=== PATIENT | male | born 1980 | race Caucasian/White ===

== ENCOUNTER 2021-03-16 21:50 | Emergency (ER) | payer OTHER, SELFPAY ==
[2021-03-16 22:01] VITALS: BP 159/94; PULSE 73; RESP 18; TEMP 36.8; O2SAT 97; BMI 34.7
[2021-03-16 22:10] VITALS: BP 146/98; PULSE 72; RESP 16; TEMP 36.8; O2SAT 99
--- NOTE | 2021-03-16 22:16 | PC.NURSE ---
Right pupil 3mm reactive to light left pupil 7mm non reactive to light.
--- NOTE | 2021-03-16 22:17 | W.ED.EYEPROB ---
HPI - Eye Problem General: Chief complaint: Eye Problems Stated complaint: left eye dilated Time Seen by Provider: 03/16/21 22:05 History of Present Illness: HPI Narrative: Patient is a 40-year-old male comes to the ED with dilated left eye. He wears contacts and noticed the dilated left eye tonight when he was taking his contacts out. Reports having some blurry vision but denies any other symptoms such as eye pain. He said his blurry vision might be just a slight worse without his contacts in. He does report having just a very mild generalized headache. He states that today he was out working on some landscaping and pulling some weeds and brush and also was burning some trash as well. Denies any foreign body in eye or getting anything in eye to cause any irritation. He has never had anything like this happen before. Denies any drug use or visit to the eye doctor with an last 24 hours. Associated symptoms: Denies fever(s), headache(s), nausea, neck pain or vomiting Review of Systems Const: Denies: fever(s), chills or fatigue Eyes: Reports: blurry vision (left eye) and other (left pupil dilated); Denies: change in vision or eye discomfort ENMT: Denies: throat pain, odynophagia, nasal discharge or nasal congestion Card: Denies: chest pain, palpitations, edema, swelling of feet/ankles, dyspnea on exertion or orthopnea Resp: Denies: dyspnea, productive cough or non-productive cough GI: Denies: abdominal pain, nausea, vomiting, diarrhea, constipation or hematochezia : Denies: flank pain, difficulty urinating, dysuria or hematuria Musc: Denies: neck pain, back pain or extremity swelling Skin/Breast: Denies: rash or new lesions Neuro: Denies: headache(s), numbness in extremities or weakness in extremities Physical Exam Const: COMMON NORMALS: no acute distress, patient oriented x3, healthy appearing and alert GENERAL APPEARANCE: cooperative and comfortable HENMT: COMMON NORMALS: normocephalic HEAD & SCALP: normocephalic MOUTH: Normal oral and palatal mucosa present THROAT: posterior oropharynx normal and uvula midline Eye: COMMON NORMALS: EOMs intact bilaterally, conjunctivae normal and fundi normal bilaterally EYELID: eyelids normal CONJUNCTIVA: Yes conjunctivae normal PUPIL: Yes Pupil accommodation reflex normal (Right normal, left eye showed minimal reaction to light.), Yes Dilated pupils on the left (7 mm) and Yes Other pupil findings (Left pupil showed minimal reaction to light.) DIRECT OPHTHALMOSCOPY: Yes fundi normal bilaterally Neck/C-Spine: COMMON NORMALS: supple GENERAL: Yes normal visual inspection Resp: COMMON NORMALS: normal respiratory effort, No retractions, No use of accessory muscles and clear to auscultation bilaterally AUSCULTATION: clear to auscultation bilaterally Cardio: COMMON NORMALS: regular rate, regular rhythm, S1 normal heart sound present, S2 normal heart sound present, No gallops present (Cardio), No clicks present (Cardio), No murmurs present (Cardio) and Peripheral pulses 2+ throughout RATE: regular rate RHYTHM: regular rhythm HEART SOUNDS: S1 normal heart sound present and S2 normal heart sound present PERIPHERAL PULSES: Peripheral pulses 2+ throughout GI: COMMON NORMALS: Normal to inspection, nondistended, normoactive bowel sounds present, Soft to palpation, non-tender and no masses PALPATION: Yes Soft to palpation : COMMON NORMALS: Yes no CVA tenderness BLADDER/KIDNEY EXAM: Yes no CVA tenderness Back/Pelvis: COMMON NORMALS: no CVA tenderness Extremity: COMMON NORMALS: normal to inspection Neuro: COMMON NORMALS: patient oriented x3, CN's II-XII intact bilaterally, moves all extremities, no focal motor deficits and no sensory deficits noted SENSORIUM/ORIENTATION: Yes alert SPEECH: speech normal SENSORY EXAM: Yes extremities MOTOR EXAM: 5/5 motor strength present throughout Skin: GENERAL SKIN EXAM: dry skin Course Vital Signs: Vital signs: Vital Signs Temperature 98.2 F 03/16/21 22:10 Pulse Rate 77 03/17/21 00:11 Respiratory Rate 19 H 03/17/21 00:11 Blood Pressure 140/79 03/17/21 00:11 Pulse Oximetry 99 03/17/21 00:11 MDM - Eye Problem MDM Narrative: Medical decision making narrative: Patient is a 40-year-old male comes to the ED with episode of left eye mydriasis. Patient wears contacts and has them removed here in the ED. He does report having some blurry vision but states that it might seem just a little bit more blurry than normal without his contacts in. Denies any other symptoms. Patient did say today he worked out in the yard burning some trash and also was pulling weeds and cleaning up some brush. Denies any trauma to left eye or any foreign body. Here in the ED patient appears in no acute distress or pain. Left pupil was about 7 mm dilated. Patient's right pupil responded to light accordingly, left pupil showed minimal response to light.. The rest of patient's exam was benign. CT of head showed no acute findings. CTA of neck and head showed no stenosis or occlusion. Patient was diagnosed with episodic mydriasis of left eye discharged home. Patient has an eye doctor that he sees in [place] and I told him to call that doctor in the morning to discuss ED visit and to schedule an appointment to be reevaluated in the next 48 hours. Return to ED precautions given. Patient understood and agree with plan. Imaging Data^: CT Head: Attestation: I personally reviewed and interpreted this imaging study as follows: Radiologist's impression: [facility] [place] [address] CT Scan Report Signed Patient: Kirby Burger Unit #: [id number] : 1980 Age/Sex: 40 / M ADM Date: 03/16/21 Loc: ER Room/Bed: Attending Dr: Ordering Provider/Ordering MD: Clifton Yanez Date of Service: 03/16/21 Procedure(s): CT head wo con* [id number] Accession Number(s): [id number] Report Number: [id number] PROCEDURE INFORMATION: Exam: CT Head Without Contrast Exam date and time: 03/16/2021 10:37 PM Age: 40 years old Clinical indication: Visual disturbance; Patient HX: Dilated non reactive L pupil - no injury; Additional info: Dilated left pupil, blurry vision TECHNIQUE: Imaging protocol: Computed tomography of the head without contrast. Radiation optimization: All CT scans at this facility use at least one of these dose optimization techniques: automated exposure control; mA and/or kV adjustment per patient size (includes targeted exams where dose is matched to clinical indication); or iterative reconstruction. COMPARISON: No relevant prior studies available. RADIATION DOSE METRICS: Total DLP (mGy-cm): 942.72 FINDINGS: Brain: No acute intracranial hemorrhage or mass effect. No definite acute infarct by CT. MRI could be more sensitive/specific for detection, as clinically directed. Cerebral ventricles: Ventricle size is normal for age. Paranasal sinuses: Mild mucosal thickening/fluid in the ethmoid sinuses. Included paranasal sinuses otherwise appear essentially clear. Mastoid air cells: No significant acute finding. Bones/joints: No definite acute skull fracture. CT/CT head wo con* [id number] IMPRESSION: 1. No acute intracranial hemorrhage or mass effect. 2. No definite acute infarct by CT, see above. 3. Other findings discussed above. Radiation Dose CTDIVOL = (mGy): DLP = 942.72 (mGy-cm) Dictated By: Hebert Metcalf MD Signed By: Hebert Metcalf MD Signed Date/Time: 03/16/212317 DD/ [address]: Attestation: I personally reviewed and interpreted this imaging study as follows: Radiologist's impression: [facility] [address] [address] Scan Report Signed Patient: Kirby Burger Unit #: [id number] : 1980 Age/Sex: 40 / M ADM Date: 03/16/21 Loc: ER Room/Bed: Attending Dr: Ordering Provider/Ordering MD: Clifton Yanez Date of Service: 03/16/21 Procedure(s): CT angio headneck* [id number] Accession Number(s): [id number] Report Number: [id number] PROCEDURE INFORMATION: Exam: CT Angiography Head With Contrast, Arteriography Exam date and time: 03/16/2021 10:28 PM Age: 40 years old Clinical indication: Visual disturbance; Other visual defect; Patient HX: Dilated non reactive L pupil - no injury; Additional info: Dilated left pupil TECHNIQUE: Imaging protocol: Computed tomography angiography of the head with contrast. Exam focused on the arteries. 3D rendering (Not supervised by radiologist): MIP and/or 3D reconstructed images were created by the technologist. Radiation optimization: All CT scans at this facility use at least one of these dose optimization techniques: automated exposure control; mA and/or kV adjustment per patient size (includes targeted exams where dose is matched to clinical indication); or iterative reconstruction. Contrast material: OMNI 350; Contrast volume: 95 ml; Contrast route: INTRAVENOUS (IV); COMPARISON: No relevant prior studies available. RADIATION DOSE METRICS: Total DLP (mGy-cm): 2175.04 FINDINGS: ANTERIOR CIRCULATION: Right internal carotid artery: Unremarkable. Intracranial segment is patent with no significant stenosis. No aneurysm. Right middle cerebral artery: Unremarkable. No occlusion or significant stenosis. No aneurysm. Right anterior cerebral artery: Unremarkable. No occlusion or significant stenosis. No aneurysm. Left internal carotid artery: Unremarkable. Intracranial segment is patent with no significant stenosis. No aneurysm. Left middle cerebral artery: Unremarkable. No occlusion or significant stenosis. No aneurysm. Left anterior cerebral artery: Unremarkable. No occlusion or significant stenosis. No aneurysm. POSTERIOR CIRCULATION: Right vertebral artery: Unremarkable. No occlusion or significant stenosis. No aneurysm. Left vertebral artery: Unremarkable. No occlusion or significant stenosis. No aneurysm. Basilar artery: Unremarkable. No occlusion or significant stenosis. No aneurysm. Right posterior cerebral artery: Unremarkable. No occlusion or significant stenosis. No aneurysm. Left posterior cerebral artery: Unremarkable. No occlusion or significant stenosis. No aneurysm. Brain: No definite mass, mass effect, or midline shift. Cerebral ventricles: No ventriculomegaly. Bones/joints: Unremarkable. No acute fracture. Soft tissues: Unremarkable. Paranasal sinuses: Mild scattered paranasal sinus mucosal thickening and secretions. IMPRESSION: No large vessel stenosis or occlusion. PROCEDURE INFORMATION: Exam: CT Angiography Neck With Contrast Exam date and time: 03/16/2021 10:28 PM Age: 40 years old Clinical indication: Visual disturbance; Other visual defect; Patient HX: Dilated non reactive L pupil - no injury; Additional info: Dilated left pupil TECHNIQUE: Imaging protocol: Computed tomography angiography of the neck with contrast. 3D rendering (Not supervised by radiologist): MIP and/or 3D reconstructed images were created by the technologist. Radiation optimization: All CT scans at this facility use at least one of these dose optimization techniques: automated exposure control; mA and/or kV adjustment per patient size (includes targeted exams where dose is matched to clinical indication); or iterative reconstruction. Contrast material: OMNI 350; Contrast volume: 95 ml; Contrast route: INTRAVENOUS (IV); COMPARISON: No relevant prior studies available. RADIATION DOSE METRICS: Total DLP (mGy-cm): 2175.04 FINDINGS: Right common carotid artery: No stenosis. No dissection or occlusion. Right internal carotid artery: No stenosis of the extracranial segment. No dissection or occlusion. Right external carotid artery: No occlusion or stenosis of the origin. Left common carotid artery: No stenosis. No dissection or occlusion. Left internal carotid artery: No stenosis of the extracranial segment. No dissection or occlusion. Left external carotid artery: No occlusion or stenosis of the origin. Right vertebral artery: No stenosis. No dissection or occlusion. Left vertebral artery: No stenosis. No dissection or occlusion. Soft tissues: Normal. No significant soft tissue swelling. Bones/joints: No acute fracture. CT/CT angio headneck* [id number] IMPRESSION: No stenosis or occlusion. REFERENCES: NASCET CRITERIA. The degree of internal carotid artery stenosis is based on NASCET criteria. Normal is no stenosis. Mild is less than 50% stenosis. Moderate is 50-69% stenosis. Severe is 70% to 99% stenosis. Total occlusion is no detectable patent lumen. Radiation Dose CTDIVOL = (mGy): DLP = 2175.04 2175.04 (mGy-cm) Dictated By: Hebert Chang MD Signed By: Hebert Chang MD Signed Date/Time: 03/16/212325 DD/ 24 Discharge Plan Discharge Patient Disposition: Home Clinical Impression: Episodic mydriasis of left eye Condition: Stable Discharge Orders: Discharge ED (Routine); Ordered 03/17/21 Ordered By: Clifton Yanez Discharge Diet: Regular Discharge Activity: Resume usual activity Activity Restrictions/Additional Instructions: Follow-up with medical provider as directed. Contact your eye doctor tomorrow morning to discuss dilated pupil and ED visit. I recommend being seen by her eye doctor within the next 48 hours for reevaluation. Return to the ER or your medical provider if condition worsens. Please read and understand discharge instructions. Thank you for choosing [facility] for your healthcare needs today. Please realize this is an emergency room and that we are providing you with a medical screening exam and this may not be complete and all inclusive of all the testing and or work up that you may need to determine your ailment or severity of your illness. It is very important that you follow up as instructed or that you return to the Emergency Department should you have concerns or if your condition changes or worsens in any way. Coding Level of Care Code ED Poultry Cutter for Chg Fwd Exam Comprehensive
--- NOTE | 2021-03-16 22:28 | CTR_ITS ---
PROCEDURE INFORMATION: Exam: CT Angiography Head With Contrast, Arteriography Exam date and time: 03/16/2021 10:28 PM Age: 40 years old Clinical indication: Visual disturbance; Other visual defect; Patient HX: Dilated non reactive L pupil - no injury; Additional info: Dilated left pupil TECHNIQUE: Imaging protocol: Computed tomography angiography of the head with contrast. Exam focused on the arteries. 3D rendering (Not supervised by radiologist): MIP and/or 3D reconstructed images were created by the technologist. Radiation optimization: All CT scans at this facility use at least one of these dose optimization techniques: automated exposure control; mA and/or kV adjustment per patient size (includes targeted exams where dose is matched to clinical indication); or iterative reconstruction. Contrast material: OMNI 350; Contrast volume: 95 ml; Contrast route: INTRAVENOUS (IV); COMPARISON: No relevant prior studies available. RADIATION DOSE METRICS: Total DLP (mGy-cm): 2175.04 FINDINGS: ANTERIOR CIRCULATION: Right internal carotid artery: Unremarkable. Intracranial segment is patent with no significant stenosis. No aneurysm. Right middle cerebral artery: Unremarkable. No occlusion or significant stenosis. No aneurysm. Right anterior cerebral artery: Unremarkable. No occlusion or significant stenosis. No aneurysm. Left internal carotid artery: Unremarkable. Intracranial segment is patent with no significant stenosis. No aneurysm. Left middle cerebral artery: Unremarkable. No occlusion or significant stenosis. No aneurysm. Left anterior cerebral artery: Unremarkable. No occlusion or significant stenosis. No aneurysm. POSTERIOR CIRCULATION: Right vertebral artery: Unremarkable. No occlusion or significant stenosis. No aneurysm. Left vertebral artery: Unremarkable. No occlusion or significant stenosis. No aneurysm. Basilar artery: Unremarkable. No occlusion or significant stenosis. No aneurysm. Right posterior cerebral artery: Unremarkable. No occlusion or significant stenosis. No aneurysm. Left posterior cerebral artery: Unremarkable. No occlusion or significant stenosis. No aneurysm. Brain: No definite mass, mass effect, or midline shift. Cerebral ventricles: No ventriculomegaly. Bones/joints: Unremarkable. No acute fracture. Soft tissues: Unremarkable. Paranasal sinuses: Mild scattered paranasal sinus mucosal thickening and secretions. IMPRESSION: No large vessel stenosis or occlusion. PROCEDURE INFORMATION: Exam: CT Angiography Neck With Contrast Exam date and time: 03/16/2021 10:28 PM Age: 40 years old Clinical indication: Visual disturbance; Other visual defect; Patient HX: Dilated non reactive L pupil - no injury; Additional info: Dilated left pupil TECHNIQUE: Imaging protocol: Computed tomography angiography of the neck with contrast. 3D rendering (Not supervised by radiologist): MIP and/or 3D reconstructed images were created by the technologist. Radiation optimization: All CT scans at this facility use at least one of these dose optimization techniques: automated exposure control; mA and/or kV adjustment per patient size (includes targeted exams where dose is matched to clinical indication); or iterative reconstruction. Contrast material: OMNI 350; Contrast volume: 95 ml; Contrast route: INTRAVENOUS (IV); COMPARISON: No relevant prior studies available. RADIATION DOSE METRICS: Total DLP (mGy-cm): 2175.04 FINDINGS: Right common carotid artery: No stenosis. No dissection or occlusion. Right internal carotid artery: No stenosis of the extracranial segment. No dissection or occlusion. Right external carotid artery: No occlusion or stenosis of the origin. Left common carotid artery: No stenosis. No dissection or occlusion. Left internal carotid artery: No stenosis of the extracranial segment. No dissection or occlusion. Left external carotid artery: No occlusion or stenosis of the origin. Right vertebral artery: No stenosis. No dissection or occlusion. Left vertebral artery: No stenosis. No dissection or occlusion. Soft tissues: Normal. No significant soft tissue swelling. Bones/joints: No acute fracture. CT/CT angio headneck* [id number] IMPRESSION: No stenosis or occlusion. REFERENCES: NASCET CRITERIA. The degree of internal carotid artery stenosis is based on NASCET criteria. Normal is no stenosis. Mild is less than 50% stenosis. Moderate is 50-69% stenosis. Severe is 70% to 99% stenosis. Total occlusion is no detectable patent lumen. Radiation Dose CTDIVOL = (mGy): DLP = 2175.04~2175.04 (mGy-cm)
--- NOTE | 2021-03-16 22:37 | CTR_ITS ---
PROCEDURE INFORMATION: Exam: CT Head Without Contrast Exam date and time: 03/16/2021 10:37 PM Age: 40 years old Clinical indication: Visual disturbance; Patient HX: Dilated non reactive L pupil - no injury; Additional info: Dilated left pupil, blurry vision TECHNIQUE: Imaging protocol: Computed tomography of the head without contrast. Radiation optimization: All CT scans at this facility use at least one of these dose optimization techniques: automated exposure control; mA and/or kV adjustment per patient size (includes targeted exams where dose is matched to clinical indication); or iterative reconstruction. COMPARISON: No relevant prior studies available. RADIATION DOSE METRICS: Total DLP (mGy-cm): 942.72 FINDINGS: Brain: No acute intracranial hemorrhage or mass effect. No definite acute infarct by CT. MRI could be more sensitive/specific for detection, as clinically directed. Cerebral ventricles: Ventricle size is normal for age. Paranasal sinuses: Mild mucosal thickening/fluid in the ethmoid sinuses. Included paranasal sinuses otherwise appear essentially clear. Mastoid air cells: No significant acute finding. Bones/joints: No definite acute skull fracture. CT/CT head wo con* [id number] IMPRESSION: 1. No acute intracranial hemorrhage or mass effect. 2. No definite acute infarct by CT, see above. 3. Other findings discussed above. Radiation Dose CTDIVOL = (mGy): DLP = 942.72 (mGy-cm)
[2021-03-16] MEDS: iohexol 350 mg/mL 100 mL Btl IV (23:03)
[2021-03-17 00:11] VITALS: BP 140/79; PULSE 77; RESP 19; O2SAT 99
== END 2021-03-17 00:13 | disposition home or self-care (01) ==
PROVIDERS: Emergency Provider Physician Assistant
DX: H57.04 Mydriasis (principal)
CPT/HCPCS: 70450; 70496; 70498; 99283; Q9967

== ENCOUNTER 2021-08-17 21:46 | Emergency (ER) | payer OTHER, SELFPAY ==
--- NOTE | 2021-08-17 21:57 | USR_ITS ---
PROCEDURE INFORMATION: Exam: US Scrotum Exam date and time: 08/17/2021 9:57 PM Age: 41 years old Clinical indication: Scrotum pain; Prior surgery; Surgery date: 6+ months; Surgery type: Vasectomy TECHNIQUE: Imaging protocol: Real-time ultrasound of the scrotum and contents with color Doppler and image documentation. COMPARISON: No relevant prior studies available. FINDINGS: Right testicle: Normal. No mass. No torsion. Normal vascular flow. Left testicle: Normal. No mass. No torsion. Normal vascular flow. Epididymides: Normal. Scrotum: Somewhat equivocal small bilateral varicoceles. Small left hydrocele. US/US scrotum [id number] IMPRESSION: 1. Testicles appear within normal limits. 2. Somewhat equivocal small bilateral varicoceles. 3. Small left hydrocele.
[2021-08-17 22:12] VITALS: BP 139/100; PULSE 73; RESP 18; TEMP 36.8; O2SAT 97; BMI 35.9
[2021-08-17 22:51] LABS: Add Urine Microscopic? YES; Bilirubin Urine Neg (Negative); Blood Urine 2+ (Negative); Glucose Urine UA Norm (Normal); Ketones Urine Negative (Negative); Leukocyte Esterase Urine Negative (Negative); Nitrate Urine Negative (Negative); Protein Urine Neg (Negative); Specific Gravity, Urine 1.025 (1.005-1.030); Urine Appearance Clear (CLEAR); Urine Color Yellow (Yellow); Urobilinogen Urine Norm (Negative); pH Urine 6 (5-7)
--- NOTE | 2021-08-17 23:15 | ED_ITS ---
HPI - Male Genitourinary General: Chief complaint: Urogenital-Male Stated complaint: testicular pain Time Seen by Provider: 08/17/21 23:15 History of Present Illness: HPI Narrative: 41-year-old male patient comes in [facility] for complaints of left testicular pain. Patient reports last night while he and his son was playing around, his son stepped on his left testicle. Patient has had persistent nauseating pain since last night. Patient denies any chronic medical problems or other injuries to the groin. Patient appears well. Patient appears in mild to moderate pain Review of Systems : Reports: testicular pain Physical Exam Const: COMMON NORMALS: patient oriented x3 GENERAL APPEARANCE: cooperative HENMT: COMMON NORMALS: normocephalic HEAD & SCALP: normocephalic Resp: COMMON NORMALS: normal respiratory effort and clear to auscultation bilaterally AUSCULTATION: clear to auscultation bilaterally Cardio: COMMON NORMALS: regular rate and regular rhythm RATE: regular rate RHYTHM: regular rhythm GI: COMMON NORMALS: Soft to palpation PALPATION: Yes Soft to palpation and No Tenderness to palpation present (GI) : PENIS: circumcised MEATUS: meatus normal SCROTUM: Yes testes descended bilaterally and No erythematous TESTES: Yes testicular lie normal, Yes testicular tenderness Testicular tenderness laterality: left and Yes epididymal tenderness (Left) Neuro: COMMON NORMALS: patient oriented x3 Psych: ATTITUDE: Yes calm Course Vital Signs: Vital signs: Vital Signs Temperature 98.3 F 08/17/21 22:12 Pulse Rate 73 08/17/21 22:12 Respiratory Rate 18 08/17/21 22:12 Blood Pressure 139/100 08/17/21 22:12 Pulse Oximetry 97 08/17/21 22:12 MDM - Male MDM Narrative: Medical decision making narrative: 41-year-old male patient comes in today with left testicular pain. On exam there is noted to be some mild swelling to the posterior aspect of the left testicle and epididymal sac. There is tenderness also to the left testicle. No ecchymosis or redness is noted to the scrotum. Differential diagnosis includes hematoma, ruptured testicle, testicular torsion. Ultrasound of the scrotum noted a hydrocele to the left testicle but no other significant abnormality. I reviewed exam with patient with recommendations for treatment including supportive underwear along with acetaminophen and ibuprofen. I recommended patient follow-up with urologist for further treatment and evaluation, patient did not want appointment at this time and would seek it if he did not have improvement. Lab Data: Labs: Lab Results 08/17/21 02:35 Urine Color Yellow (Yellow) Urine Appearance Clear (CLEAR) Urine pH 6 (5-7) Ur Specific Gravit y 1.025 (1.005-1.030) Urine Protein Neg (Negative) Urine Glucose (UA) Norm (Normal) Urine Ketones Negative (Negative) Urine Blood 2+ H (Negative) Urine Nitrate Negative (Negative) Urine Bilirubin Neg (Negative) Urine Urobilinogen Norm mg/dL mg/dL (Negative) Ur Leukocyte Michelle ase Negative (Negative) Urine RBC 5-10 /hpf H /hpf (0-2) Urine WBC 0-4 /hpf H /hpf (0-5) Ur Squamous Epith Cells 0-4 /hpf H /hpf (0-5) Amorphous Sediment Not Reportable Urine Bacteria Trace /hpf /hpf (NONE) Discharge Plan Discharge Patient Disposition: Home Clinical Impression: Hydrocele, left Condition: Stable Discharge Orders: Discharge ED (Routine); Ordered 08/18/21 Ordered By: Janes Khan Discharge Diet: Usual diet Discharge Activity: Increase activity as tolerated Patient Instructions: Hydrocele (ED), Testicle Pain (ED) Activity Restrictions/Additional Instructions: Home and rest. Activity as tolerated. Wear supportive underwear. Follow-up with the urologist office of your choice for continued complaints. Return to the ED for new concerns or worsening symptoms. Coding Level of Care Code ED Hedis Registered Nurse Rn for Pravin Fwd Exam Detailed
[2021-08-17 23:41] LABS: Squamous Epithelial Cell Urine 0-4 /hpf (0-5); WBC Urine 0-4 /hpf (0-5)
[2021-08-17 23:42] LABS: Add Urine Culture? No; Bacteria Urine TRACE /hpf
[2021-08-18 01:27] VITALS: BP 128/78; PULSE 85; RESP 17; O2SAT 98
== END 2021-08-18 01:28 | disposition home or self-care (01) ==
PROVIDERS: Emergency Provider Nurse Practitioner Family
DX: N43.3 Hydrocele, unspecified (principal)
CPT/HCPCS: 76870; 81001; 99282

== ENCOUNTER 2023-04-24 04:48 | Emergency (ER) | payer OTHER, SELFPAY ==
[2023-04-24 04:56] VITALS: BP 132/84; PULSE 108; RESP 18; TEMP 37; O2SAT 95; BMI 36.4
[2023-04-24 05:34] LABS: Basophils # 0.1 10^3/uL (0.0-0.1); Basophils % 0.7 %; Eosinophils # 0.3 10^3/uL (0.0-0.8); Eosinophils % 4.4 %; Hematocrit 45.6 % (37-53); Lymphocytes # 1.1 10^3/uL (0.8-4.8); Lymphocytes % 15.2 %; Mean Corpuscular HGB Conc 35.5 g/dL (30-55); Mean Corpuscular Hemoglobin 30.3 pg (27-33); Mean Corpuscular Volume 85.4 fl (82-101); Mean Platelet Volume 10.9 fL (7.4-10.4); Monocytes # 0.7 10^3/uL (0.2-0.9); Monocytes % 9.4 %; Neutrophils % 69.8 %; Nucleated Red Blood Cells % 0 %; Platelet Count 191 10^3/cmm (157-399); Red Blood Count 5.34 10^6/uL (3.85-5.65); Red Cell Distribution Width 12.9 % (12.1-15.1); White Blood Count 7.45 10^3/uL (3.29-11.43)
[2023-04-24 05:50] LABS: SARS Covid-2 Antigen negative (Negative)
[2023-04-24 05:56] LABS: Alanine Aminotransferase 32 U/L (0-41); Albumin Level 4.9 g/dL (3.5-5.2); Alkaline Phosphatase 64 U/L (40-130); Anion Gap 13.9 (5-19); Aspartate Amino Transferase 17 U/L (0-40); Blood Urea Nitrogen 14 mg/dL (6-20); Calcium 9.4 mg/dL (8.5-10.5); Carbon Dioxide 25 mmol/L (22-29); Chloride 103 mmol/L (98-107); Creatinine Clr Calc Pharmacy 99.9565; Globulin 2.5 g/dL (1.3-4.6); Glomerular Filtration Rate 66.7 mL/min (90-130); Glucose 107 mg/dL (65-115); Osmolality Calculated 287 mOsm/kg (285-295); Potassium 3.9 mmol/L (3.5-5.1); Sodium 138 mmol/L (136-145); Total Bilirubin 1.3 mg/dL (0.15-1.2); Total Protein 7.4 g/dL (6.6-8.7)
--- NOTE | 2023-04-24 06:02 | ED_ITS ---
HPI - Skin/Abscess/Foreign Bdy General: Chief complaint: Skin/Abscess/Foreign Body Stated complaint: Fever Time Seen by Provider: 04/24/23 05:58 Source: patient Mode of arrival: ambulatory History of Present Illness: 42-year-old male presents emergency room with a rash on the head and neck on the left side. He had it for the last week he has been seen and thought to have MRSA was started on Bactrim. Despite this it has not really improved. He is has sharp pain in the distribution of the rash the areas are tender. Mildly vesicular in nature. His had several pictures of different stages of the rash low-grade subjective fever. None of the wounds are weeping at this time. No upper respiratory symptoms. MD complaint: rash Onset (ago): day(s) Location: neck Severity: moderate Relieving factors: none Exacerbating factors: palpation Associated symptoms: Deny arthralgias, chills, cough, fever(s), itching, myalgias, nausea, rigidity, short of breath or vomiting Treatments prior to arrival: antibiotic Review of Systems Const: Denies: fever(s) or chills ENMT: Denies: throat pain, ear or mastoid pain, nasal discharge or nasal congestion Card: Denies: chest pain, edema, dyspnea on exertion or orthopnea Resp: Denies: dyspnea, productive cough or non-productive cough GI: Denies: nausea or vomiting : Denies: flank pain, dysuria, urinary frequency or urinary urgency Skin/Breast: Denies: rash or pruritus Physical Exam Const: GENERAL APPEARANCE: cooperative and comfortable ORIENTATION/CONSCIOUSNESS: Yes awake, Yes oriented to person, Yes oriented to place and Yes oriented to time HENMT: COMMON NORMALS: normocephalic, atraumatic and hearing grossly normal bilaterally HEAD & SCALP: normocephalic and atraumatic Resp: COMMON NORMALS: normal respiratory effort, No retractions, No use of accessory muscles and clear to auscultation bilaterally AUSCULTATION: clear to auscultation bilaterally Cardio: COMMON NORMALS: regular rate, regular rhythm and No murmurs present (Cardio) RATE: regular rate RHYTHM: regular rhythm GI: COMMON NORMALS: Soft to palpation and No hepatosplenomegaly present AUSCULTATION: Yes normoactive bowel sounds PALPATION: Yes Soft to palpation, No Tenderness to palpation present (GI), No Guarding due to palpation present (GI) and Yes No hepatosplenomegaly present Extremity: COMMON NORMALS: normal to inspection, capillary refill normal, no clubbing, cyanosis or edema, no calf tenderness and no pedal edema Neuro: SENSORIUM/ORIENTATION: Yes oriented to person, Yes oriented to place and Yes oriented to time Skin: OTHER: Vesicular rash in the C2-3 distribution around the neck. Does not cross the midline. Course Vital Signs: Vital signs: Vital Signs Temperature 98.6 F 04/24/23 04:56 Pulse Rate 108 H 04/24/23 04:56 Respiratory Rate 18 04/24/23 04:56 Blood Pressure 132/84 04/24/23 04:56 Pulse Oximetry 95 04/24/23 04:56 Oxygen Delivery Me thod Room Air 04/24/23 04:56 MDM - Skin/Abscess/Foreign Bdy Medicial Decision Making Varicella-zoster. Discussed with patient his the usual course of this. His initial rash began a week ago. He still has some aspects of it manifesting. He has 1 lesion on the posterior shoulder on the left looks like it may also be zoster he may have a lower dermatome involved none of the lesions cross the mi dline under all on the right side. Discussed with him the typical course of zoster postherpetic neuralgia and the fact that the rash may continue to manifest. Also discussed with him there would be rash persistent likely after he finishes the valacyclovir. He is outside the 72-hour range usually recommended to start oral antivirals however given its in a head and neck region I recommended that he still takes it these tend to be more troublesome in the long-term. Differential Diagnosis Likely abscess of skin or subcutaneous tissue, herpes zoster, cellulitis, insect bites, impetigo and contact dermatitis Medical Records I reviewed the patient's medical records. Lab Data I reviewed the patient's lab results. 04/24/23 05:26 04/24/23 05:26 Laboratory Results WBC 7.45 10^3/uL (3.29-11.43) 04/24/23 05:26 RBC 5.34 10^6/uL (3.85-5.65) 04/24/23 05:26 Hgb 16.20 g/dL (11.27-16.99) 04/24/23 05:26 Hct 45.6 % (37-53) 04/24/23 05:26 MCV 85.4 fl (82-101) 04/24/23 05:26 MCH 30.3 pg (27-33) 04/24/23 05:26 MCHC 35.5 g/dL (30-55) 04/24/23 05:26 RDW 12.9 % (12.1-15.1) 04/24/23 05:26 Plt Count 191 10^3/cmm (157-399) 04/24/23 05:26 MPV 10.9 fL (7.4-10.4) H 04/24/23 05:26 Neut % (Auto) 69.8 % 04/24/23 05:26 Lymph % (Auto) 15.2 % 04/24/23 05:26 [place] % (Auto) 9.4 % 04/24/23 05:26 Eos % (Auto) 4.4 % 04/24/23 05:26 Baso % (Auto) 0.7 % 04/24/23 05:26 Neut # (Auto) 5.20 10^3/uL (1.8-7.7) 04/24/23 05:26 Lymph # (Auto) 1.1 10^3/uL (0.8-4.8) 04/24/23 05:26 [place] # (Auto) 0.7 10^3/uL (0.2-0.9) 04/24/23 05:26 Eos # (Auto) 0.3 10^3/uL (0.0-0.8) 04/24/23 05:26 Baso # (Auto) 0.1 10^3/uL (0.0-0.1) 04/24/23 05:26 Nucleated RBC % (auto) 0 % 04/24/23 05:26 Nucleated RBCs # 0.0 /100WBC 04/24/23 05:26 Sodium 138 mmol/L (136-145) 04/24/23 05:26 Potassium 3.9 mmol/L (3.5-5.1) 04/24/23 05:26 Chloride 103 mmol/L (98-107) 04/24/23 05:26 Carbon Dioxide 25 mmol/L (22-29) 04/24/23 05:26 Anion Gap 13.9 (5-19) 04/24/23 05:26 BUN 14 mg/dL (6-20) 04/24/23 05:26 Creatinine 1.2 mg/dL (0.7-1.2) 04/24/23 05:26 GFR Calculation 66.7 mL/min (90-130) L 04/24/23 05:26 Glucose 107 mg/dL (65-115) 04/24/23 05:26 Calculated Osmolality 287 mOsm/kg (285-295) 04/24/23 05:26 Calcium 9.4 mg/dL (8.5-10.5) 04/24/23 05:26 Total Bilirubin 1.3 mg/dL (0.15-1.2) H 04/24/23 05:26 AST 17 U/L (0-40) 04/24/23 05:26 ALT 32 U/L (0-41) 04/24/23 05:26 Alkaline Phosphatase 64 U/L (40-130) 04/24/23 05:26 C-Reactive Protein 10.7 mg/L (0.0-4.9) H 04/24/23 05:26 Total Protein 7.4 g/dL (6.6-8.7) 04/24/23 05:26 Albumin 4.9 g/dL (3.5-5.2) 04/24/23 05:26 Globulin 2.5 g/dL (1.3-4.6) 04/24/23 05:26 SARS-CoV-2 Ag (Rapid) negative (Negative) 04/24/23 05:27 No radiology studies performed this visit Discharge Plan Discharge Patient Disposition: Home Clinical Impression: Herpes zoster Condition: Stable Prescriptions: New Valtrex 1 gram tablet 1,000 mg PO TID 7 Days Qty: 21 0RF Discharge Orders: Discharge ED (Routine); Ordered 04/24/23 Ordered By: Shawn Yoder Referrals: Lee Christian MD [Primary Care Provider] - Discharge Diet: Usual diet Patient Instructions: Shingles (ED), Opioid Safety, Pain Management Coding Level of Care Code ED Industrial Engineering Manager for Monalisag Mendy
[2023-04-24 06:08] LABS: C Reactive Protein 10.7 mg/L (0.0-4.9)
== END 2023-04-24 06:23 | disposition home or self-care (01) ==
PROVIDERS: Emergency Medicine; Emergency Provider Family Medicine; PCP Family Medicine
DX: B02.9 Zoster without complications (principal); Z20.822 Contact with and (suspected) exposure to COVID-19
CPT/HCPCS: 36415; 80053; 85025; 86140; 87040; 87426; 99283